=== PATIENT | female | born 1965 | race Caucasian/White ===

== ENCOUNTER 2016-10-24 11:30 | Emergency (ER) | payer OTHER ==
[2016-10-24 11:57] VITALS: BP 132/74
--- NOTE | 2016-10-24 12:33 | EDM.PDOC ---
[id number] 4d RIGHT KNEE IS PAINFUL Time Seen by Provider: 10/24/16 12:15 Source: Reports: Patient History Limitations: Reports: No limitations - History of Present Illness INITIAL COMMENTS - FREE TEXT/NARRATIVE: 51-year-old female with a swollen painful right knee. It started within the last 2 days from just turning wrong. She was seen by orthopedics yesterday and had clear fluid draining from the knee which improved her symptoms. She has a recheck scheduled for tomorrow in the clinic. However over the past 12 hours the swelling has resumed and she has difficulty bearing weight. She was offered crutches yesterday but declined. 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 Denies: erythema Neurological: Reports: No Symptoms Trauma Exam - Physical Exam Exam: See Below Exam Limited By: No limitations General Appearance: Reports: alert, no apparent distress (She is uncomfortable but not distressed) Head: Reports: atraumatic Respiratory Exam: Reports: no respiratory distress Extremities: Reports: other (Remainder of exam is limited to the right lower extremity. She does have a significant right knee effusion, no warmth or erythema of the overlying skin) Course - Vital Signs Last Recorded V/S: Last Vital Signs Temp 100.4 F 10/24/16 11:53 Pulse 96 10/24/16 11:53 Resp 20 10/24/16 11:53 BP 132/74 10/24/16 11:53 Pulse Ox 98 10/24/16 11:53 - Orders/Labs/Meds Orders: Active Orders 24 hr Category Date Time Status DME for Discharge [COMM] Stat Oth 10/24/16 12:31 Ordered - Re-Assessments/Exams Free Text/Narrative Re-Assessment/Exam: 10/24/16 17:12 A six-inch Ze wrap was applied to the knee for support. She was fitted with crutches, given 15 tramadol to take for pain control and will followup with Dr. Wan Gibson tomorrow as scheduled Departure - Departure Time of Disposition: 12:55 Disposition: Home, Self-Care 01 Condition: good Clinical Impression: Effusion of knee joint right Instructions: Knee Effusion, [id number]-[id number] Referrals: Nayeli Tyson PA [Primary Care Provider] - Forms: ED Department Discharge Care Plan Goals: Where wrap for support, continue with ibuprofen or naproxen and add tramadol for extra pain control. Use crutches and avoid weight bearing until rechecked tomorrow as scheduled. - My Orders Last 24 Hours: My Active Orders 10/24/16 12:31 DME for Discharge [COMM] Stat - Assessment/Plan Last 24 Hours: My Active Orders 10/24/16 12:31 DME for Discharge [COMM] Stat
== END 2016-10-24 12:40 | disposition home or self-care (01) ==
LOC: JP.ED 11:30
DX: M25.461 Effusion, right knee (principal); Z79.82 Long term (current) use of aspirin; Z88.0 Allergy status to penicillin; Z88.2 Allergy status to sulfonamides
CPT/HCPCS: 99283

== ENCOUNTER 2017-11-03 06:51 | Day surgery (SDC) | payer OTHER ==
[2017-11-03] MEDS ORDERED: Midazolam 1 MG/ML 2 ML SDV ONE (07:27)
[2017-11-03] MEDS ORDERED: fentaNYL 100 MCG/2 ML SDV ONE (07:27)
[2017-11-03] MEDS ORDERED: Propofol 200 MG/20 ML SDV ONE (07:27)
[2017-11-03] MEDS ORDERED: Sodium Chloride 0.9% 1,000 ML IV SCH ×2 (08:00→14:45)
[2017-11-03 09:16] VITALS: BP 111/43
--- NOTE | 2017-11-03 15:11 | OR ---
DATE OF PROCEDURE: 11/03/2017 PROCEDURE: Colonoscopy. FINDINGS: 1. Transverse colon polyp, approximately 5 mm, completely removed using cold biopsy forceps. 2. Diverticulosis, mild, limited to sigmoid colon. COMPLICATIONS: None. SHANK INSPECTOR: None. ANESTHESIA: MAC. PREOPERATIVE DIAGNOSIS: Family history of colorectal cancer. POSTOPERATIVE DIAGNOSIS: Family history of colorectal cancer. RISKS: Risks, benefits, alternatives, and limitations including, but not limited to infection, bleeding, and perforation were explained to the patient, and she wished to proceed. PROCEDURE IN DETAIL: The patient was placed in left lateral decubitus position. Digital rectal exam was performed without abnormality. The scope was introduced and advanced atraumatically to the ileocecal valve. The scope was brought back through the ascending, transverse, descending colon, and retroflexed. The aforementioned polyp was identified and completely removed. The diverticulosis was described as mild and limited to sigmoid colon. No abnormalities on retroflexion. The patient tolerated the procedure well. Jaspreet Lou MD /[id number]
== END 2017-11-03 09:38 | disposition home or self-care (01) ==
LOC: JP.SDS 06:51
PROVIDERS: ATTEND Surgery
DX: Z12.11 Encounter for screening for malignant neoplasm of colon (principal); D12.3 Benign neoplasm of transverse colon; K57.30 Diverticulosis of large intestine without perforation or abscess without bleeding
CPT/HCPCS: 45380; J2250; J2704; J3010; J7040; 88305; J7030

== ENCOUNTER 2018-03-14 06:04 | Day surgery (SDC) | payer OTHER ==
[2018-03-14] MEDS ORDERED: Bupivacaine 0.5%/EPINEPHrine 1:200,000 50 ML MDV ONE (06:52)
[2018-03-14] MEDS ORDERED: Gentamicin 40 MG/ML 2 ML Vial ONE (06:52)
[2018-03-14] MEDS ORDERED: Povidone-Iodine 10% Soln 118.25 ML Bottle ONE (06:52)
[2018-03-14] MEDS ORDERED: Lactated Ringers 1,000 ML IV SCH (07:00)
[2018-03-14] MEDS ORDERED: Neostigmine Methylsulfate 1 MG/ML 5 ML Syringe ONE (07:04)
[2018-03-14] MEDS ORDERED: Propofol 200 MG/20 ML SDV ONE (07:04)
[2018-03-14] MEDS ORDERED: Dexamethasone 4 MG/ML SDV ONE (07:04)
[2018-03-14] MEDS ORDERED: Rocuronium 50 MG/5 ML Vial ONE (07:04)
[2018-03-14] MEDS ORDERED: Glycopyrrolate 0.2 MG/ML 5 ML MDV ONE (07:04)
[2018-03-14] MEDS ORDERED: Ondansetron 4 MG/2 ML SDV ONE (07:04)
[2018-03-14] MEDS ORDERED: fentaNYL 250 MCG/5 ML SDV ONE ×2 (07:04→07:45)
[2018-03-14] MEDS ORDERED: Succinylcholine 200 MG/10 ML MDV ONE (07:04)
[2018-03-14] MEDS ORDERED: Clindamycin Phosphate 900 MG in Sodium Chloride 0.9% 100 ML IV ONE (07:30)
[2018-03-14] MEDS ORDERED: fentaNYL 100 MCG/2 ML SDV IVPUSH ONE (09:28)
[2018-03-14] MEDS ORDERED: Ketorolac 60 MG/2 ML SDV IM ONE (09:51)
[2018-03-14] MEDS ORDERED: Acetaminophen/oxyCODONE 325-5 MG Tab PO ONE (10:45)
[2018-03-14 10:56] VITALS: BP 164/100
--- NOTE | 2018-03-14 11:06 | OR ---
DATE OF PROCEDURE: 03/14/2018 PREOPERATIVE DIAGNOSIS: Right knee anterior cruciate ligament tear. POSTOPERATIVE DIAGNOSIS: Right knee anterior cruciate ligament tear. PROCEDURE PERFORMED: Right knee arthroscopy with anterior cruciate ligament reconstruction. ANESTHESIA: General endotracheal intubation. FLUIDS: Lactated Ringer solution. ESTIMATED BLOOD LOSS: 25 mL. COMPLICATIONS: None. SPECIMEN: None. DISCHARGE DISPOSITION: Stable to PACU. INSTRUMENTATION: Anterior tibialis allograft size 9 and Breaker IntraFix device. INDICATIONS: The patient is well known to me. I have been taking care of her for over a year. She initially presented with, what appeared to be, osteoarthritic flare-ups and then overtime had more of an instability feeling. I then obtained an MRI, which confirmed the above-mentioned diagnosis. She had very little chondromalacia, so we decided to go ahead with reconstruction. Risks and benefits of the procedure were explained to the patient, and informed consent was obtained. DETAILS OF PROCEDURE: The patient was seen preoperatively by myself and the Anesthesia staff in the preoperative holding area, where the operative site was marked. She was brought to the operative suite by Anesthesia staff, where general anesthesia was administered. A well-padded tourniquet was placed on the right thigh. The left leg was placed into a stirrup. The right leg had a well-padded U-garcia for the thigh. The right lower extremity was then prepped and draped in a sterile manner. Time-out was called identifying the correct patient, the correct procedure, the correct site, and that antibiotics had been begun within the appropriate period of time. I then exsanguinated the right lower extremity and then made my medial portal 1 cm distal to the patella, along the medial aspect of the patellar tendon, and the lateral portal was 1 cm distal to the patella at the junction of the lateral third of the patellar tendon. I also made an incision 3 fingerbreadths distal to the joint line horizontally in order to avoid numbness. This was done on the medial side for my tibial tunnel. I then entered the joint space using the trocar and inspected. There was very minimal chondromalacia throughout the joint . The medial and lateral meniscus did not have any tears. The anterior cruciate ligament was gone. There was partial stump left. I then removed the significant portion of the fat pad as well as the remainder of the anterior cruciate ligament stump and then cleared out the area of the insertion onto the lateral femoral condyle. After this had been accomplished, I then used a small osteotome to create more room for my Tarango guide along the lateral condyle and then removed any bone with pituitaries. I then inserted my Tarango guide under direct visualization, extended the knee, and then was able to place a pin through my guide. The position was very good in the tibia. I then reamed with a 10-reamer into the tibia and protected any tissue by keeping a curette on the edge of the pin. I then removed my reamer and then used a back-wall guide and then pinned this in place and then reamed just 30 mm. I used an 11 guide to allow for more back wall on the femur. After drilling to 30 mm, I then cleaned up some of the extra soft tissue and bone. Then, I concentrated on my graft preparation. I prepared my graft with sutures both strands and then ran one strand through each side of the Playfire IntraFix device on either side of the pin and then tied this down. I then inserted my IntraFix device after having marked my tendon and then inserted it to the proper depth. After that, I removed the guide for the device after expanding it. It expanded very nicely, and this provided good fixation. I then cycled the graft through range of motion and then inserted my tibial fixation screw under tension. I then inspected the ACL, which provided a negative drawer test anteriorly and good stability throughout range of motion. I then irrigated and applied some 0.5% bupivacaine with epinephrine, about 20 mL and then closed my tibial incision with 3-0 Vicryl and 3-0 nylon, and then closed my portals with 3-0 nylon, followed by a sterile dressing and then Ze wrap. The patient was then transferred to her hospital bed and taken to the PACU in a stable condition. Bernabe Gibson DO /[id number]
== END 2018-03-14 11:26 | disposition home or self-care (01) ==
LOC: JP.SDS 06:04
PROVIDERS: ATTEND Orthopaedic Surgery
DX: S83.511A Sprain of anterior cruciate ligament of right knee, initial encounter (principal); M94.261 Chondromalacia, right knee; Z88.0 Allergy status to penicillin; Z88.2 Allergy status to sulfonamides; Z79.899 Other long term (current) drug therapy; X58.XXXA Exposure to other specified factors, initial encounter
CPT/HCPCS: 29888; 81025; A9270; J0330; J1100; J1580; J1885; J2405; J2704; J2710; J3010; J3490

== ENCOUNTER 2018-10-25 05:46 | Day surgery (SDC) | payer OTHER ==
[2018-10-25] MEDS ORDERED: Succinylcholine 200 MG/10 ML MDV ONE (07:12)
[2018-10-25] MEDS ORDERED: Propofol 200 MG/20 ML SDV ONE (07:12)
[2018-10-25] MEDS ORDERED: Rocuronium 50 MG/5 ML Vial ONE (07:12)
[2018-10-25] MEDS ORDERED: Neostigmine Methylsulfate 1 MG/ML 5 ML Syringe ONE (07:12)
[2018-10-25] MEDS ORDERED: Ondansetron 4 MG/2 ML SDV ONE (07:12)
[2018-10-25] MEDS ORDERED: Glycopyrrolate 0.2 MG/ML 5 ML MDV ONE (07:12)
[2018-10-25] MEDS ORDERED: Dexamethasone 4 MG/ML SDV ONE (07:12)
[2018-10-25] MEDS ORDERED: fentaNYL 250 MCG/5 ML SDV ONE (07:13)
[2018-10-25] MEDS: Bupivacaine 0.5% 50 ML MDV ONE ×2 (08:06→08:14)
[2018-10-25] MEDS ORDERED: Ketorolac 60 MG/2 ML SDV IM ONE (08:43)
[2018-10-25] MEDS ORDERED: Morphine 2 MG/ML Syringe IVPUSH ONE (08:44)
[2018-10-25] MEDS ORDERED: Nozin Nasal Sanitizer NASBOTH ONE (08:45)
[2018-10-25] MEDS ORDERED: Lactated Ringers 1,000 ML IV SCH (09:45)
[2018-10-25] MEDS ORDERED: Acetaminophen/HYDROcodone 325-5 MG Tab PO ONE (09:52)
[2018-10-25] MEDS ORDERED: Clindamycin Phosphate 900 MG in Sodium Chloride 0.9% 100 ML IV ONE (10:00)
[2018-10-25 10:54] VITALS: BP 138/92
--- NOTE | 2018-10-25 13:42 | PCM.OPNOTE ---
- General Post-Op/Procedure Note Date of Surgery/Procedure: 10/25/18 Operative Procedure(s): Arthroscopy right knee with limited synovectomy, chondroplasty of patella and MFC, debridement of partial ACL graft tear Findings: Moderate synovitis, Gr III chondromalacia of patella and a small spot on MFC, partial tear of ACL graft with avulsion of bone paco Pre Op Diagnosis: Chondromalacia Patella, possible meniscus tear Post-Op Diagnosis: Chondromalacia right knee, synovitis, partial tear of ACL graft with avulsion fragment from femoral tunnel Anesthesia Technique: General ET Tube Primary Surgeon: Elroy Whelan EBCeleste in mLs: 0 Condition: Good Free Text/Narrative:: Intake & Output 10/24/18 10/25/18 10/25/18 22:59 06:59 14:59 Intake Total 1300 Balance 1300 Indications: Charley is a 53-year-old female with a history of ACL reconstruction using hamstring tendons that has been experiencing progressive painful grinding and catching and clicking in her right knee. Having increasing difficulty with weightbearing. Examination is consistent with chondromalacia of the patella and possible meniscus tear. ACL graft appears to be intact. There may be some impingement of the graft in the tunnel.Plan chondroplasty with evaluation of medial and lateral meniscus as well as her ACL graft. Risks, benefits and potential complications were discussed. She agrees to proceed. rocedure:After adequate anesthesia was obtained patient was placed supine with a tourniquet about the right upper thigh. Right leg was then prepped and draped in a sterile fashion. The leg was exsanguinated and tourniquet inflated to 300 mg of mercury pressure.A standard anterior lateral portal was established. Scope was introduced and the patellofemoral joint was inspected. Moderate synovitis was present in the suprapatellar pouch. Patella showed grade 3 changes on the dome of the patella with significant fraying of the articular cartilage.The trochlear groove had intact cartilage with some minor grade 2 softening. Medial compartment revealed an intact meniscus. There was one area of grade 3 chondromalacia with a flap of articular cartilage. Medial portal was established and a shaver was introduced. Chondroplasty was performed removing the flap from the medial femoral condyle which left a partial thickness defect of approximately4 x 5 mm.The main weightbearing portions of the medial femoral condyle and tibial plateau were intact. Inspection of the intercondylar notch revealed at 1 small anterior portion of the ACL graft had failed and a small avulsion fragment of bone from the femoral tunnel was attached to the strand of the graft from the tibial side. Shaver was used to debride the graft attachment to the avulsion fragment and the fragment was then removed with a grasper.The remainder of the ACL graft was intact and showed adequate tension. Inspection of the lateral compartment revealed grade 2 and early grade 3 changes on the tibial plateau slightly posterior and more medial towards the tibial spines.This was debrided with the shaver and the cartilage was noted at to be fairly soft. Scope was then switched from the lateral port to the medial portal and a portion of the hypertrophic synovium was debrided in the pouch and around the patella. Adequate angle for debridement of the patella could not be obtained from the standard portal and an accessory portal was made laterally. Shaver was then used to smooth over the frayed portions of the articular cartilage. No full-thickness defect was present. All loose fragments were removed the knee was drained and scope was withdrawn.Standard portals were closed with 3-0 Monocryl and Steri-Strips. The very small accessory portal was closed with Steri-Strips. Compressive dressing was then applied. Knee was infiltrated with 30 mL of 0.5% Marcaine prior to application of the dressing. Patient tolerated the procedure very well and there were no complications and she was taken from the operating room in stable condition.
== END 2018-10-25 12:02 | disposition home or self-care (01) ==
LOC: JP.SDS 05:46
PROVIDERS: ATTEND Specialist
DX: T84.410A Breakdown (mechanical) of muscle and tendon graft, initial encounter (principal); M65.861 Other synovitis and tenosynovitis, right lower leg; M94.261 Chondromalacia, right knee; Z88.2 Allergy status to sulfonamides; Z88.0 Allergy status to penicillin
CPT/HCPCS: 29877; 29999; A9270; J0330; J1100; J1885; J2270; J2405; J2704; J2710; J3010; J3490; J7030; J7120

== ENCOUNTER 2020-11-27 06:29 | Day surgery (SDC) | payer OTHER ==
[2020-11-27] MEDS ORDERED: Sodium Chloride 0.9% 1,000 ML IV SCH (07:00)
[2020-11-27] MEDS ORDERED: Propofol 200 MG/20 ML SDV ONE (07:16)
[2020-11-27] MEDS ORDERED: fentaNYL 100 MCG/2 ML SDV ONE (07:16)
[2020-11-27] MEDS ORDERED: Midazolam 1 MG/ML 2 ML SDV ONE (07:17)
[2020-11-27 09:45] VITALS: BP 118/85; PULSE 70
--- NOTE | 2020-11-27 12:08 | OR ---
DATE OF PROCEDURE: 11/27/2020 SURGEON: Jaspreet Lou MD PROCEDURE: Colonoscopy. FINDINGS: Diverticulosis, mild, limited to sigmoid colon without evidence of bleeding or inflammation. COMPLICATIONS: None. POWERHOUSE OPERATOR: None. ANESTHESIA: MAC. RISKS: Risks, benefits, alternatives, and limitations including but not limited to infection, bleeding, perforation, false positives, false negatives were explained to the patient who wished to proceed. PROCEDURE IN DETAIL: The patient was placed in left lateral decubitus position. Digital rectal exam was performed without abnormality. Scope was introduced and advanced atraumatically to the ileocecal valve. A photo was taken of this and of the appendiceal orifice. Scope was brought back to the ascending, transverse, descending colon, and retroflexed. No evidence of old or new blood. No masses. No polyps. The diverticulosis was described as mild, limited to sigmoid colon without evidence of diverticulitis or bleeding. No abnormalities on retroflexion. 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 Greater than 8 minutes was spent removing the scope. The patient tolerated the procedure well. The prep was acceptable, approximately 85% to 90% of the luminal surface could be seen. Jaspreet Lou MD /[id number]
== END 2020-11-27 10:29 | disposition home or self-care (01) ==
LOC: JP.SDS 06:29
PROVIDERS: ATTEND Surgery
DX: Z12.11 Encounter for screening for malignant neoplasm of colon (principal); K57.30 Diverticulosis of large intestine without perforation or abscess without bleeding; K63.89 Other specified diseases of intestine; Z86.010 Personal history of colon polyps
CPT/HCPCS: J2250; J2704; J3010; J7030